=== PATIENT | male | born 1930 | race Caucasian/White ===

== ENCOUNTER 2021-04-04 06:10 | Emergency (ER) | payer MEDICARE, BC ==
[~2021-04-04] VITALS: Ht 188 cm; Wt 74.5 kg
[~2021-04-04 06:10] MED LIST: NO HOME MEDS
[2021-04-04] MEDS ORDERED: oxymetazoline 15 ML nasal spray NS ONE (06:50)
[2021-04-04] MEDS ORDERED: tranexamic acid 100mg/ml inj. TP ONE (07:15)
[2021-04-04] MEDS ORDERED: AMOX-580 PO ×2 (08:22)
[2021-04-04] MEDS ORDERED: amox tr/potassium clavulanate 875/125mg TAB PO ONE (08:25)
[2021-04-04] MEDS ORDERED: acetaminophen 325mg tablet PO ONE (08:25)
[2021-04-04 08:38] VITALS: BP 147/90
[2021-04-04] MEDS ORDERED: IBUP-24 PO (13:41)
[2021-04-04] MEDS ORDERED: ASPI-1071 PO (13:41)
== END 2021-04-04 08:43 | disposition home or self-care (01) ==
LOC: ER 06:10
DX: R04.0 Epistaxis (principal); R51.9 Headache, unspecified; R22.0 Localized swelling, mass and lump, head; Z79.2 Long term (current) use of antibiotics
CPT/HCPCS: 30901; 70450; 99284

== ENCOUNTER 2021-04-04 11:32 | Day surgery (SDC) | payer MEDICARE, BC ==
[2021-03-30 15:15] LABS: BASOPHILS % (AUTO) 0.6 % (0-1); EOSINOPHILS # (AUTO) 0.1 X10'3 (0-0.9); EOSINOPHILS % (AUTO) 1.3 % (0-6); HEMATOCRIT 35.2 % (42.0-52.0); HEMOGLOBIN 11.9 g/dl (14.0-17.9); LYMPHOCYTES % (AUTO) 22.7 % (21-51); MEAN CORPUSCULAR HEMOGLOBIN 30.7 PG (27.0-31.0); MEAN CORPUSCULAR HGB CONC 33.8 g/dL (33.0-36.5); MEAN CORPUSCULAR VOLUME 90.9 FL (78-98); MEAN PLATELET VOLUME 8.2 FL (7.4-10.4); MONOCYTES # (AUTO) 0.5 X10'3 (0-0.9); MONOCYTES % (AUTO) 10.1 % (2-12); NEUTROPHILS % (AUTO) 65.3 % (42-75); PLATELET COUNT 214 X10'3 (140-440); RED BLOOD COUNT 3.88 X10'6 (4.70-6.10); RED CELL DISTRIBUTION WIDTH 13.6 % (11.5-14.5); WHITE BLOOD COUNT 4.6 X10'3 (4.5-11.0)
[2021-03-30 15:24] LABS: PARTIAL THROMBOPLASTIN TIME 27 SECONDS (22-32)
[2021-03-30 15:34] LABS: ALBUMIN 4.1 G/DL (3.4-5.0); ANION GAP 5 (8-16); BLOOD UREA NITROGEN 18 MG/DL (7-18); BUN/CREATININE RATIO 20.9 (5.4-32.0); CALCIUM 9.5 MG/DL (8.5-10.1); CHLORIDE 107 MMOL/L (99-107); CREATININE 0.86 MG/DL (0.60-1.10); GLUCOSE 83 MG/DL (70-104); POTASSIUM 3.8 MMOL/L (3.5-5.1); SODIUM 140 MMOL/L (135-145); TOTAL CARBON DIOXIDE 28.4 MMOL/L (24-32); eGFR 84 ML/MIN
[2021-04-04] VITALS (12 sets, daily range): BP systolic 107–154; BP diastolic 62–90
[~2021-04-04] VITALS: Ht 188 cm; Wt 76.2 kg
[~2021-04-04 11:32] MED LIST changes: +AMOX-580 PO
[2021-04-04] MEDS ORDERED: diphenhydrAMINE 25mg capsule PO PRN (12:00)
[2021-04-04] MEDS ORDERED: normal saline 1,000 ML IV SCH (12:00)
[2021-04-04] MEDS ORDERED: LORazepam 0.5 MG tablet PO PRN (12:00)
[2021-04-04] MEDS ORDERED: fentaNYL/PF 50MCG/1 ML 2ML syringe ONE (12:48)
[2021-04-04] MEDS ORDERED: midazolam 1 mg/ML 2ml injection ONE (12:48)
[2021-04-04] MEDS ORDERED: LIDOcaine 1% (10mg/ml)w/preservative injection 20ml MDV ONE (12:48)
[2021-04-04] MEDS ORDERED: iohexol 350MG/ML 100ml bottle IV ONE (12:48)
[2021-04-04] MEDS ORDERED: ASPI-1071 PO (13:41)
[2021-04-04] MEDS ORDERED: IBUP-24 PO (13:41)
[2021-04-04] MEDS ORDERED: iohexol 350 MG/ML 50ML vial IV ONE (14:12)
[2021-04-04] MEDS ORDERED: OXAZEpam 15mg capsule PO PRN (15:40)
[2021-04-04] MEDS ORDERED: HYDROcodone/acetaminophen 5mg/325mg tablet PO PRN (15:40)
[2021-04-04] MEDS ORDERED: ondansetron/PF 4mg/2ml inj IV PRN (15:40)
[2021-04-04] MEDS ORDERED: HYDROcodone/acetaminophen 10/325mg tab PO PRN (15:40)
[2021-04-04] MEDS ORDERED: proCHLORperazine 10 MG/2 ml inj IV PRN (15:40)
== END 2021-04-04 18:13 | disposition home or self-care (01) ==
LOC: SSTAY O 11:32
PROVIDERS: ATTEND Internal Medicine Interventional Cardiology
DX: I35.0 Nonrheumatic aortic (valve) stenosis (principal); I25.810 Atherosclerosis of coronary artery bypass graft(s) without angina pectoris; E78.5 Hyperlipidemia, unspecified; Z79.82 Long term (current) use of aspirin; Z79.899 Other long term (current) drug therapy; Z79.01 Long term (current) use of anticoagulants
CPT/HCPCS: 36415; 80048; 85025; 85610; 85730; 93005; 93455; 99152; 99153; C1769; J1644; J2001; J2250; J3010; Q9967; 30901; 70450; 99284; A4620; A6258

== ENCOUNTER 2021-04-05 13:02 | Emergency (ER) | payer MEDICARE, BC ==
[~2021-04-05] VITALS: Ht 188 cm; Wt 74.5 kg
[~2021-04-05 13:02] MED LIST changes: -AMOX-580 PO; +ASPI-1071 PO; +IBUP-24 PO; -NO HOME MEDS
[2021-04-05 13:27] VITALS: BP 97/52
== END 2021-04-05 14:13 | disposition home or self-care (01) ==
LOC: ER 13:02
DX: R04.0 Epistaxis (principal); M19.90 Unspecified osteoarthritis, unspecified site; Z79.82 Long term (current) use of aspirin; Z79.899 Other long term (current) drug therapy
CPT/HCPCS: 99281

== ENCOUNTER → 2021-04-07 | Outpatient (CLI) | payer MEDICARE, BC ==
[~2021-04-07] VITALS: Ht 176.5 cm; Wt 74.4 kg
[~2021-04-07] MED LIST changes: +IODIXANOL 320 MG/ML INFUS..BTL 100ML IV ONE; +IODIXANOL 320 MG/ML INFUS..BTL 50ML IV ONE; +albuterol 2.5 MG/3 ML nebule NEB ONE
== END | disposition home or self-care (01) ==
LOC: RAD 07:57
PROVIDERS: ATTEND Internal Medicine Cardiovascular Disease
DX: K57.30 Diverticulosis of large intestine without perforation or abscess without bleeding (principal); J90 Pleural effusion, not elsewhere classified; I70.0 Atherosclerosis of aorta; M47.816 Spondylosis without myelopathy or radiculopathy, lumbar region; M16.0 Bilateral primary osteoarthritis of hip; I70.1 Atherosclerosis of renal artery; I25.10 Atherosclerotic heart disease of native coronary artery without angina pectoris; I51.7 Cardiomegaly; I65.21 Occlusion and stenosis of right carotid artery; K44.9 Diaphragmatic hernia without obstruction or gangrene; M47.813 Spondylosis without myelopathy or radiculopathy, cervicothoracic region; Z20.822 Contact with and (suspected) exposure to COVID-19
CPT/HCPCS: 71046; 71275; 74174; 87635; 94010; 94727; 94729; C9803; Q9967

== ENCOUNTER 2021-05-25 05:23 | Inpatient (IN) | payer MEDICARE, BC ==
[2021-05-24 16:22] LABS: BASOPHILS % (AUTO) 1.2 % (0-1); EOSINOPHILS # (AUTO) 0.1 X10'3 (0-0.9); EOSINOPHILS % (AUTO) 2.7 % (0-6); LYMPHOCYTES # (AUTO) 0.8 X10'3 (1.1-4.8); MEAN CORPUSCULAR HEMOGLOBIN 30.2 PG (27.0-31.0); MEAN CORPUSCULAR HGB CONC 33.2 g/dL (33.0-36.5); MEAN CORPUSCULAR VOLUME 90.9 FL (78-98); MEAN PLATELET VOLUME 8.8 FL (7.4-10.4); MONOCYTES # (AUTO) 0.4 X10'3 (0-0.9); NEUTROPHILS # (AUTO) 2.5 X10'3 (1.8-7.7); NEUTROPHILS % (AUTO) 65.1 % (42-75); PRE OP HEMATOCRIT 36.4 % (42.0-52.0); PRE OP HEMOGLOBIN 12.1 g/dL (14.0-17.9); PRE OP PLATELET COUNT 224 X10'3 (140-440); RED CELL DISTRIBUTION WIDTH 15.9 % (11.5-14.5)
[2021-05-24 16:23] LABS: CLARITY,URINE CLEAR (Clear); COLOR,URINE YELLOW (Yellow); GLUCOSE, URINE NEGATIVE (Neg); KETONES,URINE NEGATIVE (Neg); LEUKOCYTE ESTERASE ,URINE NEGATIVE (Neg); NITRITES, URINE NEGATIVE (Neg); OCCULT BLOOD,URINE NEGATIVE (Neg); PH,URINE 5.5 (4.8-8.0); PROTEIN,URINE NEGATIVE (Neg); UROBILINOGEN,URINE 0.2 E.U/dL (0.2-1.0)
[2021-05-24 16:34] LABS: PRE OP PROTIME 10.5 SECONDS (9.0-12.0)
[2021-05-24 16:40] LABS: ALBUMIN 3.8 G/DL (3.4-5.0); ALKALINE PHOSPHATASE 103 IU/L (46-116); BLOOD UREA NITROGEN 19 MG/DL (7-18); CALCIUM 8.9 MG/DL (8.5-10.1); CHLORIDE 106 MMOL/L (99-107); CREATININE 0.95 MG/DL (0.60-1.10); PRE OP ALT 19 U/L (30-65); PRE OP ANION GAP 12 (8-16); PRE OP AST 17 U/L (10-37); PRE OP BILIRUB, TOTAL 0.2 MG/DL (0.0-1.0); PRE OP GLUCOSE 85 MG/DL (70-104); PRE OP SODIUM 144 MMOL/L (135-145); TOTAL CARBON DIOXIDE 26.5 MMOL/L (24-32); TOTAL PROTEIN 7.6 G/DL (6.4-8.2); eGFR 75 ML/MIN
[2021-05-24 17:37] LABS: UA COLLECTION TYPE VOIDED
[2021-05-25] VITALS (24 sets, daily range): BP systolic 93–151; BP diastolic 54–87
[~2021-05-25] VITALS: Ht 188 cm; Wt 74.8 kg
[~2021-05-25 05:23] MED LIST changes: -ASPI-1071 PO; +ASPI81TA52 PO; -IBUP-24 PO; -IODIXANOL 320 MG/ML INFUS..BTL 100ML IV ONE; -IODIXANOL 320 MG/ML INFUS..BTL 50ML IV ONE; -albuterol 2.5 MG/3 ML nebule NEB ONE; +ringers solution, lacted 1,000 ML IV SCH
[2021-05-25] MEDS ORDERED: aspirin 325mg tablet PO ONE (05:30)
[2021-05-25] MEDS ORDERED: famotidine 20mg tablet PO ONE (05:30)
[2021-05-25] MEDS ORDERED: nitroPRUSSIDE (NIPRIDE) (200MCG/ML) 100ML Drip IV SCH (05:30)
[2021-05-25] MEDS ORDERED: phenylephrine inj 50 MG in normal saline 250ml IV soln 245 ML IV SCH (05:30)
[2021-05-25] MEDS ORDERED: cefazolin/dext.iso 2gm/50ml IV ONE (05:30)
[2021-05-25] MEDS ORDERED: ondansetron/PF 4mg/2ml inj IV PRN ×3 (05:30→08:45)
[2021-05-25] MEDS ORDERED: vancomycin 1,500 MG in NS 300ml IV soln IV ONE (05:30)
[2021-05-25] MEDS ORDERED: LIDOcaine 1% (10mg/ml)w/preservative injection 20ml MDV ONE (06:14)
[2021-05-25] MEDS ORDERED: iohexol 350 MG/ML 50ML vial IV ONE (06:14)
[2021-05-25] MEDS ORDERED: iohexol 350MG/ML 100ml bottle IV ONE (06:14)
[2021-05-25] MEDS ORDERED: heparin 1,000 UNITS/NS 500ml 1,500 ML ONE (06:15)
[2021-05-25] MEDS ORDERED: methylPREDNISolone sod succ 125mg/2ml vial ONE (06:41)
[2021-05-25] MEDS ORDERED: fentaNYL/PF 50MCG/1 ML 2ML syringe ONE (07:17)
[2021-05-25] MEDS ORDERED: midazolam 1 mg/ML 2ml injection ONE (07:17)
[2021-05-25] MEDS ORDERED: propofol inj 20 ML IV ONE ×2 (07:38)
[2021-05-25] MEDS ORDERED: protamine sulf. 10mg/ml inj. IV ONE (07:43)
[2021-05-25] MEDS ORDERED: proCHLORperazine 10 MG/2 ml inj IV PRN ×2 (07:55→08:45)
[2021-05-25] MEDS ORDERED: morphine 2 MG/ML inj. syringe IV PRN (07:55)
[2021-05-25] MEDS ORDERED: meperidine/PF 25mg/ml syringe IV PRN ×3 (07:55)
[2021-05-25] MEDS ORDERED: morphine 4 MG/ML inj SYRINge IV PRN (07:55)
[2021-05-25] MEDS ORDERED: ringers solution, lacted 1,000 ML IV SCH (07:55)
[2021-05-25] MEDS ORDERED: heparin 1,000unit/ml 10ml vial 10 ML ONE (08:34)
[2021-05-25] MEDS ORDERED: magnesium 2GM in 50ml NS 50 ML IV PRN (08:45)
[2021-05-25] MEDS ORDERED: ALPRAZolam 0.25mg tablet PO PRN (08:45)
[2021-05-25] MEDS ORDERED: docusate sod 100mg capsule PO PRN (08:45)
[2021-05-25] MEDS ORDERED: potassium Cl 40MEQ/1/2NS 520ml 520 ML IV PRN (08:45)
[2021-05-25] MEDS ORDERED: labetalol 20mg/4ml (5mg/ml) syringe IV PRN (08:45)
[2021-05-25] MEDS ORDERED: diphenhydrAMINE 25mg capsule PO PRN (08:45)
[2021-05-25] MEDS ORDERED: potassium Cl 20 mEq SR tablet PO PRN (08:45)
[2021-05-25] MEDS ORDERED: pantoprazole 40mg Tablet.DR PO PRN (08:45)
[2021-05-25] MEDS ORDERED: hydrALAZINE 20mg/ml inj. IV PRN (08:45)
[2021-05-25] MEDS ORDERED: magnesium 4gm in 100ml NS 100 ML IV PRN (08:45)
[2021-05-25] MEDS ORDERED: potassium CL 10mEq/100ml bag 100 ML IV PRN (08:45)
--- NOTE | 2021-05-25 08:58 | NUR ---
Received from OR via , accompanied by Anesthesiologist DR WALSH and report given by Anesthesiolgist. PT PRESENTS WITH ART LINE LEFT WRIST, 18G LEFT FOREARM,VSS. Addendum: 05/25/21 at 0918 by Saadia Motley RN, RN Amended: Links added.
--- NOTE | 2021-05-25 10:38 | NUR ---
Report called to receiving nurse. Transferred via HOSPITAL BED WITH MONITOR TO ROOM 309A. CHRIS PATEL AT BEDSIDE TO GREET PATIENT. Belongings SENT TO PT ROOM 309A. Special Issues communicated to receiving nurse. Addendum: 05/25/21 at 1103 by Saadia Motley RN RN Amended: Links added.
[2021-05-25] MEDS: acetaminophen 325mg tablet PO PRN ×3 (12:21→22:26)
[2021-05-25] MEDS: normal saline 1000ml 1,000 ML IV SCH ×2 (16:11→18:45)
[2021-05-25] MEDS: ceFAZolin 1GM/D5W- ADD-VANTAGE 50 ML IV SCH (16:11)
[2021-05-25] MEDS: sod chloride 0.9% 10ml flush syringe IV SCH (16:57)
--- NOTE | 2021-05-25 17:14 | NUR ---
Pt C/O of N/V - PRN Zofran with positive results. Pt has C/O headache - PRN tylenol with relief for a period of time, had to administer again - pt is now sleeping.
--- NOTE | 2021-05-25 18:00 | NUR ---
Patient in room MED 309. I have received report from Fabiana PATEL and had the opportunity to ask questions and assume patient care.
--- NOTE | 2021-05-25 18:08 | NUR ---
Patient in room MED 309. I have received report from Caitlin PATEL and had the opportunity to ask questions and assume patient care.
--- NOTE | 2021-05-25 18:25 | NUR ---
Problems reprioritized. Patient report given, questions answered & plan of care reviewed with AMANDA Baron.
[2021-05-25] MEDS: vancomycin/NS 1 GM ADD-VANTAGE 250 ML IV SCH (20:29)
[2021-05-26] MEDS: ceFAZolin 1GM/D5W- ADD-VANTAGE 50 ML IV SCH ×2 (00:40→07:40)
[2021-05-26] MEDS: sod chloride 0.9% 10ml flush syringe IV SCH ×2 (00:41→07:51)
[2021-05-26 02:00] VITALS: BP 113/53
[2021-05-26] MEDS: normal saline 1000ml 1,000 ML IV SCH (04:45)
[2021-05-26 05:59] LABS: BASOPHILS % (AUTO) 0.9 % (0-1); EOSINOPHILS # (AUTO) 0.1 X10'3 (0-0.9); EOSINOPHILS % (AUTO) 1.3 % (0-6); HEMATOCRIT 28.9 % (42.0-52.0); LYMPHOCYTES # (AUTO) 0.3 X10'3 (1.1-4.8); LYMPHOCYTES % (AUTO) 5.4 % (21-51); MEAN CORPUSCULAR HEMOGLOBIN 31.2 PG (27.0-31.0); MEAN CORPUSCULAR HGB CONC 34.5 g/dL (33.0-36.5); MEAN CORPUSCULAR VOLUME 90.5 FL (78-98); MEAN PLATELET VOLUME 8.7 FL (7.4-10.4); MONOCYTES # (AUTO) 0.6 X10'3 (0-0.9); MONOCYTES % (AUTO) 10.5 % (2-12); NEUTROPHILS # (AUTO) 4.5 X10'3 (1.8-7.7); NEUTROPHILS % (AUTO) 81.9 % (42-75); PLATELET COUNT 157 X10'3 (140-440); RED BLOOD COUNT 3.19 X10'6 (4.70-6.10); RED CELL DISTRIBUTION WIDTH 15.6 % (11.5-14.5); WHITE BLOOD COUNT 5.5 X10'3 (4.5-11.0)
[2021-05-26 06:00] VITALS: BP 117/61
--- NOTE | 2021-05-26 06:12 | NUR ---
Problems reprioritized. Patient report given, questions answered & plan of care reviewed with FRANCINE PATEL.
[2021-05-26 06:19] LABS: ALANINE AMINOTRANSFERASE 15 U/L (12-78); ALBUMIN 3.1 G/DL (3.4-5.0); ALBUMIN/GLOBULIN RATIO 0.9 (1.1-1.5); ALKALINE PHOSPHATASE 79 IU/L (46-116); ANION GAP 6 (8-16); ASPARTATE AMINO TRANSFERASE 17 U/L (10-37); BILIRUBIN,TOTAL 0.6 MG/DL (0.1-1.0); BLOOD UREA NITROGEN 13 MG/DL (7-18); BUN/CREATININE RATIO 15.9 (5.4-32.0); CALCIUM 8.5 MG/DL (8.5-10.1); CHLORIDE 105 MMOL/L (99-107); CREATININE 0.82 MG/DL (0.60-1.10); GLUCOSE 110 MG/DL (70-104); POTASSIUM 3.6 MMOL/L (3.5-5.1); SODIUM 136 MMOL/L (135-145); TOTAL CARBON DIOXIDE 24.8 MMOL/L (24-32); TOTAL PROTEIN 6.4 G/DL (6.4-8.2); eGFR 89 ML/MIN
[2021-05-26] MEDS: acetaminophen 325mg tablet PO PRN (07:43)
[2021-05-26] MEDS ORDERED: aspirin 81mg, enteric-coated 1 TAB TABLET.DR PO SCH (08:00)
[2021-05-26] MEDS: vancomycin/NS 1 GM ADD-VANTAGE 250 ML IV SCH (08:59)
[2021-05-26] MEDS ORDERED: WALKERFR (09:17)
[2021-05-26 10:00] VITALS: BP 116/68
--- NOTE | 2021-05-26 13:33 | NUR ---
Paged CM Please help to get a walker for pt as his d/c orders show. Thanks
--- NOTE | 2021-05-26 13:51 | NUR ---
Order for PT mary - spoke with JACINTO Anguiano, he will get to this eval after the patient he is working with now. I will page CM back once complete.
[2021-05-26 15:00] VITALS: BP 115/68
--- NOTE | 2021-05-26 17:18 | NUR ---
D/C Pt is stable for D/C per MD orders. All d/c ppwk was reviewed in detail with patient and patient and patient daughter Tran. PIV was removed and patient tolerated well. All questions, comments and concerns were answered and pt verbalized understanding. All personal belongings were sent with pt and pt was rolled out in W/C to private vehicle where pt and daughter was waiting. No new RX.
== END 2021-05-26 15:20 | disposition home or self-care (01) | DRG 267 ==
LOC: PAS IN 05:23 → MED 3N 10:52
PROVIDERS: ADMIT Internal Medicine Cardiovascular Disease; ATTEND Internal Medicine Cardiovascular Disease
PROC: B41D1ZZ Fluoroscopy of Aorta and Bilateral Lower Extremity Arteries using Low Osmolar Contrast (ICD-10-PCS; 2021-05-25)
PROC: 02RF38Z Replacement of Aortic Valve with Zooplastic Tissue, Percutaneous Approach (ICD-10-PCS; principal; 2021-05-25 07:12)
DX: I35.0 Nonrheumatic aortic (valve) stenosis (principal); Z00.6 Encounter for examination for normal comparison and control in clinical research program; F05 Delirium due to known physiological condition; R51.9 Headache, unspecified; I45.10 Unspecified right bundle-branch block; R42 Dizziness and giddiness; E78.00 Pure hypercholesterolemia, unspecified; I25.10 Atherosclerotic heart disease of native coronary artery without angina pectoris; Z79.82 Long term (current) use of aspirin; Z95.1 Presence of aortocoronary bypass graft
CPT/HCPCS: 33361; 36415; 71045; 71046; 80053; 81003; 82948; 83735; 83880; 85025; 85347; 85610; 85730; 86885; 86900; 86901; 86920; 87081; 93005; 93308; 97116; 97161; A4618; A6258; A6449; C1756; C1760; C1769; C1894; G0378; J0690; J1644; J2175; J2250; J2370; J2405; J2704; J2720; J2930; J3010; J3370; J3490; J7030; J7040; J7050; J7120; Q9967